=== PATIENT | female | born 2000 | race Caucasian/White ===

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

== ENCOUNTER → 2018-03-04 | Outpatient (CLI) | payer OTHER ==
[~2018-03-04] MED LIST changes: +PANTOPRAZOLE SO40 M1 PO; +ZOFRAN ODT4 MG PO
== END ==
LOC: M.ULTRA 10:52
DX: N63.20 Unspecified lump in the left breast, unspecified quadrant (principal); M79.89 Other specified soft tissue disorders; D68.59 Other primary thrombophilia

== ENCOUNTER → 2018-05-05 | Outpatient (CLI) | payer OTHER ==
[2018-05-05 21:09] LABS: PROLACTIN 8.8 ng/mL (4.8-23.3); TESTOSTERONE 39 ng/dL (8-48)
== END ==
LOC: M.LAB 11:18
PROVIDERS: Family Medicine
DX: N64.89 Other specified disorders of breast (principal); N92.0 Excessive and frequent menstruation with regular cycle

== ENCOUNTER 2018-09-23 08:01 | Inpatient (IN) | payer OTHER ==
[~2018-09-23] VITALS: Ht 160 cm; Wt 90.7 kg
[~2018-09-23 08:01] MED LIST changes: -MULTIVITAMINS
[2018-09-23 08:08] VITALS: BP 145/86
[2018-09-23] MEDS ORDERED: ALEVE220 M1 PO (08:13)
[2018-09-23] MEDS ORDERED: OXYCODONE HCL 55 MG PO (08:14)
[2018-09-23 09:22] LABS: ABSOLUTE LYMPHOCYTES 1.7 thou/uL (0.8-5.3); ABSOLUTE MONOCYTES 0.4 thou/uL (0.0-1.2); ABSOLUTE NEUTROPHILS 2.9 thou/uL (1.6-8.1); BASOPHILS 0.4 %; EOSINOPHILS 0.8 %; HEMATOCRIT 41.1 % (37.0-47.0); HEMOGLOBIN 14.2 gm/dL (12.0-15.0); LYMPHOCYTES 34.1 %; MCH 29.3 pg (26.0-34.0); MCHC 34.4 g/dL (28.0-37.0); MCV 85.3 fL (80.0-100.0); MONOCYTES 8.4 %; MPV 8.4 fl. (7.2-11.1); NUCLEATED RBCS 0 /100WBC; PLATELET COUNT* 205 thou/uL (150-400); POLYS 56.3 %; RBC 4.82 mil/uL (4.20-5.00); RDW-CV 12.2 % (10.5-14.5); WBC 5.1 thou/uL (4.0-11.0)
[2018-09-23 09:31] LABS: APTT 29.2 Seconds (25.0-31.3); INR 1.1; PROTIME 10.8 Seconds (9.20-11.50)
[2018-09-23 10:02] VITALS: BP 102/55
[2018-09-23 10:15] VITALS: BP 110/55
[2018-09-23 10:20] LABS: ALBUMIN 3.9 g/dL (3.4-5.0); CREATININE 0.7 mg/dL (0.6-1.3); POTASSIUM 3.9 mmol/L (3.5-5.1); TOTAL BILIRUBIN 0.6 mg/dL (<0.1-1.0); TOTAL PROTEIN 7.1 g/dL (6.4-8.2)
[2018-09-23 18:13] VITALS: BP 132/76
[2018-09-23 19:30] VITALS: BP 112/56
[2018-09-24 00:29] VITALS: BP 112/56
[2018-09-24 08:40] VITALS: BP 120/58
[2018-09-24 14:08] VITALS: BP 120/58
[2018-09-24] MEDS ORDERED: TRAMADOL 50 MG50 MG PO (14:24)
[2018-09-24 14:35] VITALS: BP 120/58
[2018-09-24] MEDS ORDERED: MULTIVITAMINS (14:42)
[2018-09-24 15:16] VITALS: BP 120/58
== END 2018-09-24 15:18 | disposition home or self-care (01) | DRG 815 ==
LOC: M.ERS 08:01 → M.3W 09:33 → M.TBA-ER 09:33 → M.3W 10:05
PROVIDERS: Family Medicine; ADMIT Family Medicine
DX: D68.69 Other thrombophilia (principal); I82.501 Chronic embolism and thrombosis of unspecified deep veins of right lower extremity; Z88.6 Allergy status to analgesic agent; Z88.8 Allergy status to other drugs, medicaments and biological substances; Z86.711 Personal history of pulmonary embolism; Z79.01 Long term (current) use of anticoagulants

== ENCOUNTER → 2019-03-17 | Outpatient (CLI) | payer OTHER ==
[~2019-03-17] MED LIST changes: +ALEVE220 M1 PO; +MULTIVITAMINS; +OXYCODONE HCL 55 MG PO
== END ==
LOC: M.ULTRA 13:00
DX: S80.11XA Contusion of right lower leg, initial encounter (principal); D68.59 Other primary thrombophilia; W19.XXXA Unspecified fall, initial encounter; Y93.89 Activity, other specified; Y92.89 Other specified places as the place of occurrence of the external cause; Y99.8 Other external cause status

== ENCOUNTER → 2020-01-11 | Outpatient (CLI) | payer OTHER | LOC: M.LAB 09:33 | PROVIDERS: ATTEND Nurse Practitioner Family | DX: Z03.818 Encounter for observation for suspected exposure to other biological agents ruled out (principal) ==

== ENCOUNTER 2020-02-05 20:35 | Emergency (ER) | payer OTHER ==
[~2020-02-05] VITALS: Ht 160 cm; Wt 93.0 kg
[2020-02-05 22:14] VITALS: BP 154/71
== END 2020-02-05 22:15 | disposition home or self-care (01) ==
LOC: M.ERS 20:35
DX: S63.591A Other specified sprain of right wrist, initial encounter (principal); Z86.718 Personal history of other venous thrombosis and embolism; Z88.6 Allergy status to analgesic agent; Z88.8 Allergy status to other drugs, medicaments and biological substances; W23.0XXA Caught, crushed, jammed, or pinched between moving objects, initial encounter; Y93.89 Activity, other specified; Y92.89 Other specified places as the place of occurrence of the external cause; Y99.8 Other external cause status

== ENCOUNTER 2020-05-10 17:40 | Emergency (ER) | payer OTHER ==
[~2020-05-10] VITALS: Ht 160 cm; Wt 97.5 kg
[2020-05-10 18:13] LABS: URINE BILIRUBIN NEGATIVE (Negative); URINE BLOOD 1+ (Negative); URINE CLARITY CLEAR; URINE COLOR YELLOW; URINE GLUCOSE-RANDOM NEGATIVE (Negative); URINE KETONES NEGATIVE (Negative); URINE LEUKOCYTES-REFLEX NEGATIVE (Negative); URINE NITRITE-REFLEX NEGATIVE (Negative); URINE PROTEIN NEGATIVE (Negative); URINE UROBILINOGEN 0.2 E.U./dl (0.2-1.0)
[2020-05-10 18:20] LABS: CASTS None Seen /LPF (None Seen); CRYSTALS None Seen /LPF (None Seen); MUCUS None Seen strn/LPF (None Seen); SQUAMOUS >10 Many /LPF (0-3); URINE WBC-REFLEX 0-5 Rare /HPF (0-5)
[2020-05-10 18:21] LABS: URINE RBC 0-2 Rare /HPF (0-2)
[2020-05-10 18:33] LABS: ABSOLUTE LYMPHOCYTES 2.2 thou/uL (0.8-5.3); ABSOLUTE MONOCYTES 0.5 thou/uL (0.0-1.2); ABSOLUTE NEUTROPHILS 5.1 thou/uL (1.6-8.1); BASOPHILS 0.6 %; EOSINOPHILS 0.5 %; HEMATOCRIT 41.9 % (37.0-47.0); HEMOGLOBIN 14.5 gm/dL (12.0-15.0); MCH 29.7 pg (26.0-34.0); MCHC 34.7 g/dL (28.0-37.0); MCV 85.6 fL (80.0-100.0); MONOCYTES 6.7 %; MPV 7.7 fl. (7.2-11.1); NUCLEATED RBCS 0 /100WBC; PLATELET COUNT* 227 thou/uL (150-400); POLYS 64.2 %; RBC 4.89 mil/uL (4.20-5.00); RDW-CV 12.1 % (10.5-14.5); WBC 7.9 thou/uL (4.0-11.0)
[2020-05-10 18:41] LABS: CALCIUM 10.3 mg/dL (8.5-10.1); CREATININE 0.8 mg/dL (0.6-1.3)
[2020-05-10 18:46] LABS: ALBUMIN 4.3 g/dL (3.4-5.0); TOTAL PROTEIN 7.9 g/dL (6.4-8.2)
[2020-05-10] MEDS ORDERED: ONDANSETRON HCL4 M2 PO (19:51)
[2020-05-10] MEDS ORDERED: CARAFATE1 GM/10 ML PO (19:51)
[2020-05-10] MEDS ORDERED: NORCO 5-325 TA1 EAC2 PO (19:51)
[2020-05-10] MEDS ORDERED: PROTONIX40 M2 PO ×2 (19:51→19:55)
[2020-05-10] MEDS ORDERED: PHENERGAN 25 MG25 M1 PO (19:55)
[2020-05-10 20:09] VITALS: BP 130/79
--- NOTE | 2020-05-11 15:10 | EKG ---
[place] [address] ELECTROCARDIOGRAM REPORT Name: KAILEYLILYANUJ FREDIS Room: [facility]#: [id number] Admission: 05/10/20 Attend Phys: Discharge: 05/10/20 Date of : [birth year] Date of Service: 05/10/201910 Report #: [id number] THIS REPORT FOR: //name// [facility] ED Test Date: 2020-05-10 Test Time: 19:11:46 Pat Name: ANUJ RINCON Department: Room: Gender: F Roller Cleaner: [place] : 2000 Requested By: Viky Garg Order Number: [id number] MD: Calvin Stallworth Measurements Intervals [place] Rate: 71 P: 21 TX: 122 QRS: 23 QRSD: 100 T: 7 QT: 398 QTc: 433 Interpretive Statements Sinus rhythm Baseline wander in lead(s) II,III,aVF Compared to ECG 11/25/2017 19:57:26 Sinus tachycardia no longer present Poor R-wave progression no longer present Electronically Signed On 05-11-2020 15:10:48 CDT by Calvin Stallworth [email or web address] <ELECTRONICALLY SIGNED> By: Calvin Stallworth MD, FACC 05/11/20 1510 10 10 Calvin Stallworth MD, FACC /EPI
== END 2020-05-10 20:19 | disposition home or self-care (01) ==
LOC: M.ERS 17:40
PROVIDERS: Nurse Practitioner Family
DX: R10.13 Epigastric pain (principal); K21.9 Gastro-esophageal reflux disease without esophagitis; Z79.899 Other long term (current) drug therapy; Z88.8 Allergy status to other drugs, medicaments and biological substances; Z88.6 Allergy status to analgesic agent

== ENCOUNTER → 2020-05-15 | Outpatient (CLI) | payer OTHER ==
[~2020-05-15] MED LIST changes: +CARAFATE1 GM/10 ML PO; +NORCO 5-325 TA1 EAC2 PO; +ONDANSETRON HCL4 M2 PO; +PHENERGAN 25 MG25 M1 PO; +PROTONIX40 M2 PO
[2020-05-15 18:07] LABS: ALBUMIN 4.4 g/dL (3.4-5.0); CALCIUM 9.5 mg/dL (8.5-10.1); CREATININE 0.8 mg/dL (0.6-1.3); TOTAL BILIRUBIN 0.8 mg/dL (<0.1-1.0)
[2020-05-17 02:06] LABS: GLYCOHEMOGLOBIN (HGB A1C) 5.1 % (4.8-5.6)
== END ==
LOC: M.LAB 17:00
PROVIDERS: ATTEND Nurse Practitioner Family
DX: R10.13 Epigastric pain (principal); R11.0 Nausea; R14.0 Abdominal distension (gaseous); Z00.01 Encounter for general adult medical examination with abnormal findings

== ENCOUNTER → 2020-05-22 | Outpatient (CLI) | payer OTHER | LOC: M.NUC 15:22 | PROVIDERS: ATTEND Nurse Practitioner Family | DX: R14.0 Abdominal distension (gaseous) (principal); R11.0 Nausea ==

== ENCOUNTER → 2020-06-19 | Outpatient (CLI) | payer OTHER ==
[2020-06-19 18:10] LABS: CALCIUM 9.2 mg/dL (8.5-10.1); CREATININE 0.7 mg/dL (0.6-1.3); POTASSIUM 4.1 mmol/L (3.5-5.1)
== END ==
LOC: M.LAB 17:37
DX: I87.091 Postthrombotic syndrome with other complications of right lower extremity (principal)

== ENCOUNTER → 2020-09-18 | Outpatient (CLI) | payer OTHER | LOC: M.LAB 15:21 | PROVIDERS: ATTEND Nurse Practitioner Family | DX: R79.89 Other specified abnormal findings of blood chemistry (principal); R94.6 Abnormal results of thyroid function studies ==

== ENCOUNTER 2020-10-08 19:24 | Emergency (ER) | payer OTHER ==
[~2020-10-08] VITALS: Ht 160 cm; Wt 103.0 kg
[2020-10-08] MEDS ORDERED: LOVENOX100 MG/1 M (19:42)
[2020-10-08] MEDS ORDERED: PNV 29-1 TABLE1 EACH PO (19:43)
[2020-10-08 21:10] VITALS: BP 160/95
== END 2020-10-08 21:10 | disposition home or self-care (01) ==
LOC: M.ERS 19:24
DX: S06.0X0A Concussion without loss of consciousness, initial encounter (principal); M62.838 Other muscle spasm; Z86.718 Personal history of other venous thrombosis and embolism; Z88.6 Allergy status to analgesic agent; Z88.8 Allergy status to other drugs, medicaments and biological substances; W18.39XA Other fall on same level, initial encounter; Y93.89 Activity, other specified; Y92.89 Other specified places as the place of occurrence of the external cause; Y99.8 Other external cause status

== ENCOUNTER → 2020-10-09 | Outpatient (CLI) | payer OTHER ==
[~2020-10-09] MED LIST changes: +LOVENOX100 MG/1 M; +PNV 29-1 TABLE1 EACH PO
[2020-10-09 16:33] LABS: ABSOLUTE MONOCYTES 0.5 thou/uL (0.0-1.2); ABSOLUTE NEUTROPHILS 4.7 thou/uL (1.6-8.1); BASOPHILS 0.3 %; EOSINOPHILS 0.5 %; HEMATOCRIT 42.1 % (37.0-47.0); HEMOGLOBIN 14.4 gm/dL (12.0-15.0); LYMPHOCYTES 27.7 %; MCH 29.6 pg (26.0-34.0); MCHC 34.3 g/dL (28.0-37.0); MCV 86.2 fL (80.0-100.0); MONOCYTES 6.4 %; MPV 7.6 fl. (7.2-11.1); NUCLEATED RBCS 0 /100WBC; PLATELET COUNT* 246 thou/uL (150-400); POLYS 65.1 %; RBC 4.89 mil/uL (4.20-5.00); RDW-CV 12.4 % (10.5-14.5); WBC 7.2 thou/uL (4.0-11.0)
[2020-10-09 16:43] LABS: ALBUMIN 4.1 g/dL (3.4-5.0); CALCIUM 9.3 mg/dL (8.5-10.1); CREATININE 0.7 mg/dL (0.6-1.3); POTASSIUM 3.8 mmol/L (3.5-5.1); TOTAL BILIRUBIN 0.5 mg/dL (<0.1-1.0); TOTAL PROTEIN 7.5 g/dL (6.4-8.2)
[2020-10-09 23:06] LABS: PROLACTIN 19.2 ng/mL (4.8-23.3); TESTOSTERONE 18 ng/dL (8-48)
[2020-10-13 05:07] LABS: FREE TESTOSTERONE 1.9 pg/mL (0.0-4.2)
== END ==
LOC: M.ULTRA 15:19
PROVIDERS: ATTEND Nurse Practitioner Family
DX: N88.8 Other specified noninflammatory disorders of cervix uteri (principal); N83.8 Other noninflammatory disorders of ovary, fallopian tube and broad ligament; D68.59 Other primary thrombophilia; I10 Essential (primary) hypertension; N91.2 Amenorrhea, unspecified; R79.89 Other specified abnormal findings of blood chemistry; Z98.890 Other specified postprocedural states